=== PATIENT | male | born 1950 | race Caucasian/White ===

== ENCOUNTER 2016-10-22 19:15 | Emergency (ER) | payer MEDICARE, OTHER ==
[2016-10-22] MEDS ORDERED: AMPICILLIN/SULBACTAM 3 GM in SODIUM CHLORIDE 0.9% MINIBAG 100 ML IV STA (19:32)
== END 2016-10-22 20:17 | disposition home or self-care (01) ==
DX: S61.052A Open bite of left thumb without damage to nail, initial encounter (principal); L08.9 Local infection of the skin and subcutaneous tissue, unspecified; W54.0XXA Bitten by dog, initial encounter; Y93.K9 Activity, other involving animal care; Y92.29 Other specified public building as the place of occurrence of the external cause; Y99.0 Civilian activity done for income or pay; R03.0 Elevated blood-pressure reading, without diagnosis of hypertension

== ENCOUNTER 2018-04-04 16:56 | Emergency (ER) | payer MEDICARE, OTHER ==
--- NOTE | 2018-04-04 18:44 | XRAY Report ---
Procedure Date: 04/04/2018 Accession Number: [id number] / [id number] Procedure: XR - Knee 4 View RT CPT Code: FULL RESULT: EXAM: RIGHT KNEE RADIOGRAPHY EXAM DATE: 04/04/2018 05:54 PM. CLINICAL HISTORY: KICKED BY HORSE. COMPARISON: XR KNEE 4 OR MORE VIEWS 12/29/2009. TECHNIQUE: 3 views. FINDINGS: Bones: No fracture or focal bony lesion. Joints: No evidence of dislocation. Soft Tissues: No unexpected soft tissue findings. IMPRESSION: No evidence of fracture or dislocation. [facility]
--- NOTE | 2018-04-04 18:47 | XRAY Report ---
Procedure Date: 04/04/2018 Accession Number: [id number] / [id number] Procedure: XR - Wrist 3 View LT CPT Code: FULL RESULT: EXAM: LEFT WRIST RADIOGRAPHY EXAM DATE: 04/04/2018 06:13 PM. CLINICAL HISTORY: Pain. COMPARISON: 06/20/2014. TECHNIQUE: 3 views. FINDINGS: Bones: There are bony foci at the dorsal margin of the wrist. This could be seen with triquetral fracture. No other fractures are seen. Sensitivity for detection of scaphoid fracture is limited in the absence of ulnar deviated scaphoid view. Joints: No evidence of dislocation. Soft Tissues: There is dorsal soft tissue swelling. IMPRESSION: 1. There are corticated bony foci at the dorsal margin of the carpal row. This could represent remote triquetral fracture. Acute triquetral fracture is less likely given presence of several bones, corticated appearance, and similar findings seen on comparison contralateral lateral view of the wrist. 2. Sensitivity for detection of scaphoid fracture is limited in the absence of ulnar deviated scaphoid view. 3. No evidence of dislocation. [facility]
--- NOTE | 2018-04-04 18:48 | XRAY Report ---
Procedure Date: 04/04/2018 Accession Number: [id number] / [id number] Procedure: XR - Shoulder 3 View RT CPT Code: FULL RESULT: EXAM: RIGHT SHOULDER RADIOGRAPHY EXAM DATE: 04/04/2018 05:54 PM. CLINICAL HISTORY: Kicked by a horse/ pain. COMPARISON: None. TECHNIQUE: 3 views. FINDINGS: Bones: No fracture or focal bony lesion. Joints: No evidence of dislocation. Soft Tissues: No unexpected soft tissue findings. IMPRESSION: No evidence of fracture or dislocation. [facility]
--- NOTE | 2018-04-04 20:15 | ED Physician Documentation ---
PD HPI UPPER EXT INJURY - Stated complaint Stated Complaint: KICKED BY HORSE/R LEG/SHOULDER PX - Chief complaint Chief Complaint: Trauma Ext - History obtained from History obtained from: Patient - History of Present Illness Location: Right, Shoulder, Wrist, Other (right knee) Type of injury: Blunt / blow (he was working near back of horse and it kicked quickly. He was thrown back and landed onto ground. He is not sure which injury was the kick and which landing onto ground. Denies injury to head and neck, nor chest.) Timing - onset: Today Timing - details: Abrupt onset, Still present Worsened by: Moving, Palpating Associated symptoms: Swelling (shoulder and knee areas.). No: Weakness, Numbness Contributing factors: No: Anticoagulated Similar symptoms before: Has not had sx before Review of Systems Skin: denies: Abrasion (s), Laceration (s) Musculoskeletal: denies: Neck pain, Back pain Neurologic: denies: Focal weakness, Numbness, Altered mental status, Headache, Head injury PD PAST MEDICAL HISTORY - Past Medical History Past Medical History: Yes Cardiovascular: None Respiratory: None Neuro: None Endocrine/Autoimmune: None Musculoskeletal: Chronic back pain - Past Surgical History Past Surgical History: Yes Ortho: Arthroscopic surgery - Present Medications Home Medications: Ambulatory Orders Medication Instructions Recorded Confirmed Meloxicam 15 mg PO DAILY 10/25/15 10/22/16 Meloxicam 15 mg PO BID #60 tablet 04/04/18 - Allergies Allergies/Adverse Reactions: Allergies Allergy/AdvReac Type Severity Reaction Status Date / Time No Known Drug Allergies Allergy Verified 04/04/18 17:29 - Social History Does the pt smoke?: No Smoking Status: Never smoker Does the pt drink ETOH?: Yes Does the pt have substance abuse?: No - Immunizations Immunizations are current?: Yes PD ED PE NORMAL - Vitals Vital signs reviewed: Yes - General General: Alert and oriented X 3, No acute distress, Well developed/nourished - HEENT HEENT: Atraumatic - Neck Neck: Supple, no meningeal sign, No adenopathy - Cardiac Cardiac: RRR, No murmur - Respiratory Respiratory: Clear bilaterally, Other (no chestwall tenderness) - Abdomen Abdomen: Soft, Non tender - Back Back: No spinal TTP - Derm Derm: Normal color, Warm and dry - Extremities Extremities: Other (right shoulder tender anteriorly, and at mid clavicle area without deformity. No step at AC area. Right forearm with slight tenderness. Wrist with some dorsal tenderness, slight limit ROM. no noted deformity. Right knee with some tenderness medially without effusion. No gross laxity on stress testing. ) - Neuro Neuro: Alert and oriented X 3, No motor deficit, Normal speech Eye Opening: Spontaneous Motor: Obeys Commands Verbal: Oriented GCS Score: 15 Results - Vitals Vitals: Oxygen O2 Source Room air PD MEDICAL DECISION MAKING - ED course Complexity details: considered differential (he says he was near back legs of horse and it kicked quickly and he flew back onto the ground. He is not sure which injuries were from the kick and which from the fall. ), d/w patient - Sepsis Event Vital Signs: Oxygen O2 Source Room air Departure - Departure Disposition: 01 Home, Self Care Clinical Impression: Struck by horse, initial encounter Fall, accidental Qualifiers: Encounter type: initial encounter Qualified Code(s): W19.XXXA - Unspecified fall, initial encounter Shoulder strain Qualifiers: Encounter type: initial encounter Laterality: right Qualified Code(s): S46.911A - Strain of unspecified muscle, fascia and tendon at shoulder and upper arm level, right arm, initial encounter Left wrist sprain Qualifiers: Encounter type: initial encounter Qualified Code(s): S63.502A - Unspecified sprain of left wrist, initial encounter Strain of right knee Qualifiers: Encounter type: initial encounter Qualified Code(s): S86.911A - Strain of unspecified muscle(s) and tendon(s) at lower leg level, right leg, initial encounter Condition: Stable Record reviewed to determine appropriate education?: Yes Instructions: ED Sprain Knee, ED Sprain Shoulder Follow-Up: Connor Alas MD [Primary Care Provider] - Prescriptions: Meloxicam 15 mg PO BID #60 tablet Comments: No fracture seen on your shoulder knee or wrist. This certainly will be sore for several days to week at least. The shoulder injury could be a few weeks healing if it did have some injury to the ligaments or rotator cuff. Use a sling initially with some gentle range of motion several times a day. Continue your meloxicam twice daily. Add Tylenol if needed for pains. Progress activity with it after several days to week if it is feeling better. Follow-up with your primary care if not improved over the next week. Discharge Date/Time: 04/04/18 20:46
[2018-04-04] MEDS ORDERED: MELOXICAM 7.5 MG TABLET PO STA (20:28)
[2018-04-04] MEDS ORDERED: ACETAMINOPHEN 325 MG TABLET PO STA (20:28)
[2018-04-04 20:48] VITALS: BP 134/80
== END 2018-04-04 20:46 | disposition home or self-care (01) ==
LOC: ED 16:56
DX: S46.911A Strain of unspecified muscle, fascia and tendon at shoulder and upper arm level, right arm, initial encounter (principal); S63.502A Unspecified sprain of left wrist, initial encounter; S86.911A Strain of unspecified muscle(s) and tendon(s) at lower leg level, right leg, initial encounter; W55.12XA Struck by horse, initial encounter
CPT/HCPCS: 73030; 73110; 73564; 99283; A9270

== ENCOUNTER 2018-04-05 20:47 | Emergency (ER) | payer MEDICARE, OTHER ==
[2018-04-05 20:54] VITALS: BP 139/80
--- NOTE | 2018-04-05 21:57 | ED Physician Documentation ---
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 He was x-rayed including x-rays of the right shoulder which was negative. He has persistent popping the distal right clavicle with certain motions of his arm and wonders if his clavicle might be broken.) Review of Systems Constitutional: reports: Reviewed and negative Cardiac: reports: Reviewed and negative Respiratory: reports: Reviewed and negative PD PAST MEDICAL HISTORY - Past Medical History Musculoskeletal: Chronic back pain - Past Surgical History Past Surgical History: Yes Ortho: Arthroscopic surgery - Present Medications Home Medications: Ambulatory Orders Medication Instructions Recorded Confirmed Meloxicam 15 mg PO DAILY 10/25/15 10/22/16 Meloxicam 15 mg PO BID #60 tablet 04/04/18 - Allergies Allergies/Adverse Reactions: Allergies Allergy/AdvReac Type Severity Reaction Status Date / Time No Known Drug Allergies Allergy Verified 04/04/18 17:29 - Social History Does the pt smoke?: No Smoking Status: Never smoker Does the pt drink ETOH?: Yes Does the pt have substance abuse?: No - Immunizations Immunizations are current?: Yes PD ED PE NORMAL - Vitals Vital signs reviewed: Yes - General General: Alert and oriented X 3, No acute distress - Neck Neck: Supple, no meningeal sign, No bony TTP - Extremities Extremities: Other (Right shoulder: The clavicle itself is nontender but he is very tender at the AC joint and he has crepitance with certain motions when he opens up the before meals and he feels like the clavicles popping up, this is all consistent with an AC separation.) - Neuro Neuro: Alert and oriented X 3, Normal speech Results - Vitals Vitals: Vital Signs - 24 hr 04/05/18 20:51 Temperature 36.4 C L Heart Rate 71 Respiratory 16 Rate Blood Pressure 139/80 H O2 Saturation 96 Oxygen O2 Source Room air PD MEDICAL DECISION MAKING - Sepsis Event Vital Signs: Vital Signs - 24 hr 04/05/18 20:51 Temperature 36.4 C L Heart Rate 71 Respiratory 16 Rate Blood Pressure 139/80 H O2 Saturation 96 Oxygen O2 Source Room air Departure - Departure Disposition: 01 Home, Self Care Clinical Impression: Separation of right acromioclavicular joint Qualifiers: Encounter type: initial encounter Qualified Code(s): S43.101A - Unspecified dislocation of right acromioclavicular joint, initial encounter Condition: Good Record reviewed to determine appropriate education?: Yes Instructions: ED Sprain AC Joint Follow-Up: [facility] [Provider Group] - Within 1 week Comments: Your blood pressure was elevated today on check into the emergency department. This does not mean that you have hypertension, it is a common phenomenon to come to the emergency department and have elevated blood pressure. I recommend that you see your primary care physician within the week to have it rechecked when you are feeling better.
== END 2018-04-05 22:00 | disposition home or self-care (01) ==
LOC: ED 20:47
DX: S43.101A Unspecified dislocation of right acromioclavicular joint, initial encounter (principal); W55.12XA Struck by horse, initial encounter; Y99.0 Civilian activity done for income or pay; R03.0 Elevated blood-pressure reading, without diagnosis of hypertension
CPT/HCPCS: 99282; 99283

== ENCOUNTER 2018-06-19 21:45 | Emergency (ER) | payer MEDICARE, OTHER ==
--- NOTE | 2018-06-19 21:50 | ED Physician Documentation ---
PD HPI UPPER EXT INJURY - Stated complaint Stated Complaint: HAND LAC PD PAST MEDICAL HISTORY - Past Medical History Musculoskeletal: Chronic back pain - Past Surgical History Past Surgical History: Yes Ortho: Arthroscopic surgery - Present Medications Home Medications: Ambulatory Orders Medication Instructions Recorded Confirmed Meloxicam 15 mg PO DAILY 10/25/15 10/22/16 Meloxicam 15 mg PO BID #60 tablet 04/04/18 - Allergies Allergies/Adverse Reactions: Allergies Allergy/AdvReac Type Severity Reaction Status Date / Time No Known Drug Allergies Allergy Verified 04/04/18 17:29 - Social History Does the pt smoke?: No Smoking Status: Never smoker Does the pt drink ETOH?: Yes Does the pt have substance abuse?: No - Immunizations Immunizations are current?: Yes Results - Vitals Vitals: Oxygen O2 Source Room air
[2018-06-19] MEDS ORDERED: TETANUS/DIPHTHERIA/PERTUSSIS 0.5 ML SYRINGE IM ONE (22:01)
[2018-06-19] MEDS ORDERED: BUFFERED LIDOCAINE 10 ML SYRINGE SUBQ ONE (22:01)
--- NOTE | 2018-06-19 22:02 | ED Physician Documentation ---
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 Tetanus is approaching 10 years.) Review of Systems Constitutional: reports: Reviewed and negative Cardiac: reports: Reviewed and negative Respiratory: reports: Reviewed and negative PD PAST MEDICAL HISTORY - Past Medical History Musculoskeletal: Chronic back pain - Past Surgical History Past Surgical History: Yes Ortho: Arthroscopic surgery - Present Medications Home Medications: Ambulatory Orders Medication Instructions Recorded Confirmed Meloxicam 15 mg PO DAILY 10/25/15 10/22/16 Meloxicam 15 mg PO BID #60 tablet 04/04/18 - Allergies Allergies/Adverse Reactions: Allergies Allergy/AdvReac Type Severity Reaction Status Date / Time No Known Drug Allergies Allergy Verified 06/19/18 21:57 - Social History Does the pt smoke?: No Smoking Status: Never smoker Does the pt drink ETOH?: Yes Does the pt have substance abuse?: No - Immunizations Immunizations are current?: Yes PD ED PE NORMAL - Vitals Vital signs reviewed: Yes - General General: Alert and oriented X 3, No acute distress - Extremities Extremities: Other (On the right palm, near the first webspace there is an L- shaped laceration totaling 3 cm. It is over the flexor tendon for the second digit but there is no compromise of strength in that digit and no problem with neurovascular status in any of the digits.) - Neuro Neuro: Alert and oriented X 3, Normal speech - Psych Psych: Normal mood, Normal affect Results - Vitals Vitals: Vital Signs - 24 hr 06/19/18 21:47 Temperature 36.5 C Heart Rate 66 Respiratory 17 Rate Blood Pressure 152/74 H O2 Saturation 96 Oxygen O2 Source Room air Procedures - Laceration (location) R hand Length in cm: 3 Wound type: Stellate, Irregular, Superficial, Into subcut fat. No: Into muscle Neurovascular status: Sensory intact, Motor intact Anesthesia: Lidocaine 1%, With bicarb Wound Preparation: Betadine, Irrigated copiously NS Skin layer closure: Nylon, Interrupted, Size #-0 - enter number (4-0), Sutures - enter # (10) Other: Patient tolerated well, No complications, Neurovascular intact, Tetanus booster given Complexity: Simple Departure - Departure Disposition: Home, Self Care Clinical Impression: Laceration of right hand Qualifiers: Encounter type: initial encounter Foreign body presence: without foreign body Qualified Code(s): S61.411A - Laceration without foreign body of right hand, initial encounter Condition: Good Record reviewed to determine appropriate education?: Yes Instructions: ED Laceration Hand Comments: Come back for any signs of infection which would include: Redness, swelling, drainage, increased pain, or fevers. Follow-up with your physician in 14 days for suture removal. Your blood pressure was elevated today on check into the emergency department. This does not mean that you have hypertension, it is a common phenomenon to come to the emergency department and have elevated blood pressure. I recommend that you see your primary care physician within the week to have it rechecked when you are feeling better.
[2018-06-19 22:55] VITALS: BP 160/102
== END 2018-06-19 22:57 | disposition home or self-care (01) ==
LOC: ED 21:45
DX: S61.411A Laceration without foreign body of right hand, initial encounter (principal); W23.0XXA Caught, crushed, jammed, or pinched between moving objects, initial encounter; Y99.0 Civilian activity done for income or pay; R03.0 Elevated blood-pressure reading, without diagnosis of hypertension; Z23 Encounter for immunization
CPT/HCPCS: 12002; 90471; 99282; 99283

== ENCOUNTER 2018-10-26 16:29 | Outpatient (CLI) | payer MEDICARE, OTHER ==
--- NOTE | 2018-10-27 11:09 | MRI Report ---
Reason: KNEE JOINT PAIN > 3 MONTHS,RIGHT Procedure Date: 10/26/2018 Accession Number: [id number] / [id number] Procedure: MRI - Knee RT W/O CPT Code: FULL RESULT: EXAM: RIGHT KNEE MRI WITHOUT CONTRAST EXAM DATE: 10/26/2018 05:22 PM. CLINICAL HISTORY: Right knee pain for 3 months after injury while riding a horse. COMPARISON: KNEE 3 VIEW RT 04/04/2018 5:54 PM XR KNEE 4 OR MORE VIEWS 04/10/2011 8:01 PM. TECHNIQUE: Multiplanar, multisequence T1-weighted and fluid-sensitive sequences of the knee without contrast. Other: None. FINDINGS: Bones and Articular Cartilage: Small marginal osteophytes at the femoral condyles, tibial plateau, and patella. Grade II chondromalacia of the medial femoral condyle and medial tibial plateau. Subcortical cysts at the posterior medial aspect of the medial tibial plateau. Subcortical cysts at the posterior lateral superior aspect of the lateral femoral condyle. Grade 2-3 chondromalacia and subcortical cysts at the median ridge and medial facet of the patella. No patellar subluxation. Grade 2 chondromalacia of the femoral trochlear groove. Medial Meniscus: Free edge fraying and small tear at the inner third of the posterior horn. Lateral Meniscus: The lateral meniscus is intact. Cruciate Ligaments: Small 5 mm partial tear at the proximal end of the anterior cruciate ligament. There is mucoid degeneration and/or sprain of the remaining anterior cruciate ligament. The posterior cruciate ligament is intact. Collateral Ligaments: Chronic appearing grade 2 partial tear at the proximal aspect of the medial collateral ligament complex. Small ganglion within the posterior proximal aspect of the medial (tibial) collateral ligament. The lateral collateral ligament complex structures are intact. Tendons: The quadriceps and patellar and popliteus tendons are intact. There is distal semimembranosus tendinosis. There is a multiloculated and multiseptated, approximately 3.6 x 3 x 0.8 cm ganglion at the distal end of the semimembranosus tendon. Musculature: No edema or fatty atrophy. Other: No effusion. No popliteal cyst. No loose bodies. The medial and lateral retinacula are intact. There a magnetic susceptibility artifacts within the subcutaneous tissues at the anteromedial aspect of the visualized distal thigh. IMPRESSION: 1. 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 No acute fracture. 2. Free edge fraying and small horizontal tear at the inner third of the posterior horn medial meniscus. 3. Small 5 mm partial tear at the proximal end of the anterior cruciate ligament. Mucoid degeneration and/or sprain of the remaining anterior cruciate ligament. 4. Chronic appearing grade 2 partial tear at the proximal aspect of the medial collateral ligament complex. 5. Distal semimembranosus tendinosis. There is a multiloculated and multiseptated ganglion at the distal end of the semimembranosus tendon. 6. Magnetic susceptibility artifacts within the subcutaneous fat at the anterior medial aspect of the visualized distal thigh which may be due to small metallic foreign bodies or may be postoperative in etiology. [facility] MUSCULOSKELETAL RADIOLOGY SECTION
== END 2018-10-26 16:30 | disposition home or self-care (01) ==
LOC: DI 16:29
PROVIDERS: ATTEND Orthopaedic Surgery Sports Medicine
DX: M17.11 Unilateral primary osteoarthritis, right knee (principal); S83.241A Other tear of medial meniscus, current injury, right knee, initial encounter; S83.511A Sprain of anterior cruciate ligament of right knee, initial encounter; S83.411A Sprain of medial collateral ligament of right knee, initial encounter; M67.863 Other specified disorders of tendon, right knee; M67.461 Ganglion, right knee

== ENCOUNTER 2019-07-21 06:58 | Outpatient (CLI) | payer MEDICARE, OTHER ==
--- NOTE | 2019-07-22 04:54 | XRAY Report ---
Reason: Pain and edema 2nd MP joint since 02/26/19 Procedure Date: 07/21/2019 Accession Number: [id number] / [id number] Procedure: XR - Foot 3 View RT CPT Code: Final Report FULL RESULT: EXAM: RIGHT FOOT RADIOGRAPHY EXAM DATE: 07/21/2019 07:13 AM. CLINICAL HISTORY: Pain and edema 2nd MP joint since 02/26/19. COMPARISON: None. TECHNIQUE: 3 views. FINDINGS: Bones: Normal. No fractures or bone lesions. A calcaneal enthesophyte is seen. Joints: Mild osteoarthritis is seen at the first metatarsophalangeal joint and first interphalangeal joint. Soft Tissues: Soft tissue edema seen along the plantar surface of the forefoot. IMPRESSION: No acute osseous abnormality. Soft tissue swelling. [facility]
== END 2019-07-21 06:59 | disposition home or self-care (01) ==
LOC: DI 06:58
PROVIDERS: ATTEND Podiatrist
DX: M79.671 Pain in right foot (principal); R60.0 Localized edema

== ENCOUNTER 2019-08-13 18:01 | Outpatient (CLI) | payer MEDICARE, OTHER ==
--- NOTE | 2019-08-14 13:46 | MRI Report ---
Reason: PAIN AND EDEMA 2ND Procedure Date: 08/13/2019 Accession Number: [id number] / [id number] Procedure: MRI - Foot RT W/O CPT Code: Final Report FULL RESULT: EXAM: RIGHT MIDFOOT MRI WITHOUT CONTRAST EXAM DATE: 08/13/2019 07:27 PM. CLINICAL HISTORY: Pain and edema. COMPARISON: FOOT 3 VIEW RT 07/21/2019 7:09 AM. TECHNIQUE: Multiplanar, multisequence T1-weighted and fluid-sensitive sequences of the midfoot without contrast. Other: None. FINDINGS: Bones: Bipartite medial cuneiform with severe arthrosis articulation plantar and dorsal segments (image 34 series 701 and image 8 series 901). Severe arthrosis is seen at the first cuneiform second cuneiform articulation. Moderate arthrosis is noted at the dorsal aspect first tarsometatarsal articulation with severe chondromalacia and subcortical marrow edema or cystic changes. Focal subcortical marrow edema distal third cuneiform with chondromalacia at the third metatarsal third cuneiform articulation. Marrow edema is noted at the proximal phalanx second digit with periarticular soft tissue swelling. Articular Cartilage and joints: Severe chondromalacia first metatarsophalangeal joint with mild subluxation first metatarsophalangeal joint and moderate osteoarthritis first metatarsophalangeal joint. Small second metatarsophalangeal joint fluid. Ligaments: Intact plantar aspect first cuneiform second metatarsal base ligament tip. Negative for disruption membranous ligament first cuneiform second metatarsal base. Possible partial tear first cuneiform second metatarsal dorsal Lisfranc ligament. Negative for second tarsometatarsal subluxation. Tendons: The flexor and extensor tendons are unremarkable. Musculature: No edema or fatty atrophy. Other: Negative for discrete mass plantar forefoot between the first and second metatarsal heads corresponding.The visualized portion of the tarsal tunnel is unremarkable.No intermetatarsal bursitis.Negative for discrete soft tissue mass plantar aspect of first and second metatarsal head interspace corresponding to the skin marker. Negative for neuroma. Negative for intermetatarsal bursitis. IMPRESSION: 1. Periarticular soft tissue edema and small increased second metatarsophalangeal joint fluid. 2. Negative for marginal erosion or synovitis second metatarsophalangeal joint to suggest inflammatory arthritis. 3. There is no discrete soft tissue mass or neuroma plantar aspect forefoot between the first and second metatarsal heads at the level of the skin marker indicating the site of pain. 4. Bipartite first cuneiform with severe arthrosis or osteochondrosis between the dorsal and plantar segments. 5. Severe arthrosis is noted at the first cuneiform, second cuneiform articulation with probable partial tear first and second intermetatarsal ligaments. 6. Moderate arthrosis dorsal aspect first tarsometatarsal articulation. 7. Intact plantar aspect and membranous ligament and probable partial tear dorsal band first cuneiform second metatarsal base ligament or Lisfranc ligament without subluxation. 8. Moderate osteoarthritis and severe chondromalacia first metatarsophalangeal joint. [facility]
== END 2019-08-13 18:02 | disposition home or self-care (01) ==
LOC: DI 18:01
PROVIDERS: ATTEND Podiatrist
DX: M19.071 Primary osteoarthritis, right ankle and foot (principal); M25.474 Effusion, right foot; M94.271 Chondromalacia, right ankle and joints of right foot

== ENCOUNTER 2020-11-29 12:51 | Outpatient (CLI) | payer MEDICARE, OTHER ==
[2020-11-29 13:29] LABS: BASOPHILS % (AUTO) 0.5 %; EOSINOPHILS # (AUTO) 0.1 10^3/uL (0.0-0.7); HCT - HEMATOCRIT 44.2 % (42.0-52.0); LYMPHOCYTES # (AUTO) 1.4 10^3/uL (1.5-3.5); LYMPHOCYTES % (AUTO) 32.3 %; MEAN CORPUSCULAR HEMOGLOBIN 31.3 pg (27.0-31.0); MEAN CORPUSCULAR HGB CONC 33.9 g/dL (32.0-36.0); MEAN CORPUSCULAR VOLUME 92.3 fL (80.0-94.0); MEAN PLATELET VOLUME 9.4 fL (7.4-11.4); MONOCYTES # (AUTO) 0.3 10^3/uL (0.0-1.0); MONOCYTES % (AUTO) 7.2 %; NEUTROPHILS # (AUTO) 2.5 10^3/uL (1.5-6.6); NEUTROPHILS % (AUTO) 56.8 %; PLT - PLATELET COUNT 187 10^3/uL (130-450); RED BLOOD COUNT 4.79 10^6/uL (4.70-6.10); RED CELL DISTRIBUTION WIDTH 12.1 % (12.0-15.0); WHITE BLOOD COUNT 4.3 x10^3/uL (4.8-10.8)
[2020-11-29 13:49] LABS: ALBUMIN 4.6 g/dL (3.2-5.5); ALBUMIN/GLOBULIN RATIO 1.4 (1.0-2.2); ALKALINE PHOSPHATASE 67 IU/L (42-121); ALT ALANINE AMINOTRANSFERASE 33 IU/L (10-60); AST ASPARTATE AMINOTRANSFERASE 33 IU/L (10-42); BILIRUBIN,TOTAL 1.6 mg/dL (0.2-1.0); BUN - BLOOD UREA NITROGEN 24 mg/dL (6-20); CALCIUM 9.5 mg/dL (8.5-10.3); CARBON DIOXIDE - CO2 25 mmol/L (21-32); CHLORIDE 102 mmol/L (101-111); CHOL/HDL RATIO 4.3 (<5.0); CHOLESTEROL 193 mg/dL; CREATININE 1.1 mg/dL (0.6-1.2); GFR - MDRD 66 (>89); GLUCOSE 83 mg/dL (70-100); HDL CHOLESTEROL 45 mg/dL; LDL CHOLESTEROL,CALCULATED 139 mg/dL; LDL/HDL RATIO 3.1 (<3.6); POTASSIUM 4.3 mmol/L (3.5-5.0); SODIUM 141 mmol/L (135-145); TOTAL PROTEIN 7.8 g/dL (6.7-8.2); TRIGLYCERIDES 47 mg/dL; VLDL CHOLESTEROL 9 mg/dL
[2020-11-29 14:00] LABS: THYROID STIMULATING HORMONE 3.41 uIU/mL (0.34-5.60)
== END 2020-11-29 12:52 | disposition home or self-care (01) ==
LOC: LAB 12:51
PROVIDERS: ATTEND Family Medicine
DX: N52.9 Male erectile dysfunction, unspecified (principal); M19.90 Unspecified osteoarthritis, unspecified site; E66.3 Overweight; M54.5 Low back pain; G89.29 Other chronic pain; R53.83 Other fatigue
CPT/HCPCS: 36415; 80053; 80061; 81599; 83721; 84153; 84443; 85025; 86382

== ENCOUNTER 2021-04-19 18:55 | Outpatient (CLI) | payer MEDICARE, OTHER ==
--- NOTE | 2021-04-19 19:47 | XRAY Report ---
PROCEDURE: Knee 4 View RT INDICATIONS: KNEE EFFUSION, RIGHT TECHNIQUE: 3 views of the right knee(s) were acquired. COMPARISON: None. FINDINGS: Bones: No fractures or dislocations. No suspicious bony lesions. Mild tricompartmental periarticul ar osteophyte formation. Soft tissues: No joint effusion. No suspicious soft tissue calcifications. IMPRESSION: Osteoarthritis. No acute fracture. No osseous lesion. If symptoms and/or clinical suspic ion for pathology continue, further assessment with repeat plain films, or advanced imaging (e.g., CT , MRI, or bone scan) is recommended for further assessment. Reviewed by: Klaudia Zarate MD on 04/19/2021 7:46 PM PDT Approved by: Klaudia Zarate MD on 04/19/2021 7:46 PM PDT Station ID: [id number]
== END 2021-04-19 18:56 | disposition home or self-care (01) ==
LOC: DI 18:55
PROVIDERS: ATTEND Family Medicine
DX: M17.11 Unilateral primary osteoarthritis, right knee (principal)

== ENCOUNTER 2022-02-23 18:19 | Emergency (ER) | payer MEDICARE, OTHER ==
[2022-02-23 18:58] LABS: BASOPHILS % (AUTO) 0.8 %; EOSINOPHILS # (AUTO) 0.4 10^3/uL (0.0-0.7); EOSINOPHILS % (AUTO) 8.4 %; HCT - HEMATOCRIT 43.7 % (42.0-52.0); HGB - HEMOGLOBIN 14.6 g/dL (14.0-18.0); LYMPHOCYTES % (AUTO) 38.5 %; MEAN CORPUSCULAR HEMOGLOBIN 30.9 pg (27.0-31.0); MEAN CORPUSCULAR HGB CONC 33.4 g/dL (32.0-36.0); MEAN CORPUSCULAR VOLUME 92.4 fL (80.0-94.0); MEAN PLATELET VOLUME 9.9 fL (7.4-11.4); MONOCYTES # (AUTO) 0.5 10^3/uL (0.0-1.0); MONOCYTES % (AUTO) 10.3 %; NEUTROPHILS # (AUTO) 2.2 10^3/uL (1.5-6.6); NEUTROPHILS % (AUTO) 41.8 %; PLT - PLATELET COUNT 185 10^3/uL (130-450); RED BLOOD COUNT 4.73 10^6/uL (4.70-6.10); RED CELL DISTRIBUTION WIDTH 12.4 % (12.0-15.0); WHITE BLOOD COUNT 5.1 x10^3/uL (4.8-10.8)
--- NOTE | 2022-02-23 19:10 | XRAY Report ---
PROCEDURE: Chest 1 View X-Ray INDICATIONS: Chest Pain TECHNIQUE: One view of the chest was acquired. COMPARISON: None FINDINGS: Surgical changes and devices: None. Lungs and pleura: No pleural effusions or pneumothorax. Lungs are clear. Mediastinum: Mediastinal contours appear normal. Heart size is normal. Bones and chest wall: No suspicious bony lesions. Overlying soft tissues appear unremarkable. IMPRESSION: No acute cardiopulmonary disease process. Reviewed by: Blanca Ricks MD, PhD on 02/23/2022 7:09 PM PDT Approved by: Blanca Ricks MD, PhD on 02/23/2022 7:09 PM PDT Station ID: [id number]
[2022-02-23 19:12] LABS: ALBUMIN 4.3 g/dL (3.2-5.5); ALBUMIN/GLOBULIN RATIO 1.3 (1.0-2.2); BILIRUBIN,TOTAL 1.2 mg/dL (0.2-1.0); CALCIUM 8.9 mg/dL (8.5-10.3); CREATININE 1.2 mg/dL (0.6-1.2); POTASSIUM 4.1 mmol/L (3.5-5.0); TOTAL PROTEIN 7.6 g/dL (6.7-8.2)
--- NOTE | 2022-02-23 19:12 | ED Physician Documentation ---
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 He chronically has indigestion and developed his usual indigestion pressure pain but for half the day 2 days ago it radiated in the left arm and shoulder and this was atypical. He did not feel overtly fatigued but does note he was tired after, but did not sleep the 2 nights prior because of veterinary emergencies. He was not short of breath, nauseous, sweaty, or dizzy. He called his doctor's office to make an appointment but was referred here. No pain in the last 36 to 48 hours or so. Review of Systems Constitutional: denies: Fever, Chills, Sweats Cardiac: denies: Palpitations, Pedal edema, Calf pain Respiratory: denies: Dyspnea, Cough, Hemoptysis, Wheezing PD PAST MEDICAL HISTORY - Past Medical History Cardiovascular: None Respiratory: None Neuro: None Endocrine/Autoimmune: None GI: None : None HEENT: None Psych: None Musculoskeletal: Chronic back pain Derm: None - Past Surgical History Past Surgical History: Yes Ortho: Arthroscopic surgery - Allergies Allergies/Adverse Reactions: Allergies Allergy/AdvReac Type Severity Reaction Status Date / Time No Known Drug Allergies Allergy Verified 02/23/22 18:25 - Social History Does the pt smoke?: No Smoking Status: Never smoker Does the pt drink ETOH?: Yes Does the pt have substance abuse?: No - Immunizations Immunizations are current?: Yes - POLST Patient has POLST: No PD ED PE NORMAL - Vitals Vital signs reviewed: Yes - General General: Alert and oriented X 3, No acute distress - HEENT HEENT: PERRL, EOMI - Neck Neck: Supple, no meningeal sign, No bruit - Cardiac Cardiac: RRR, No murmur - Respiratory Respiratory: No respiratory distress, Clear bilaterally - Abdomen Abdomen: Non tender - Extremities Extremities: No edema, No calf tenderness / cord - Neuro Neuro: Alert and oriented X 3, Normal speech Results - Vitals Vitals: Vital Signs - 24 hr 02/23/22 02/23/22 18:27 19:40 Temperature 36.3 C L 36.5 C Heart Rate 58 L 62 Respiratory 16 16 Rate Blood Pressure 173/96 H 155/88 H O2 Saturation 99 99 Oxygen O2 Source Room air - EKG (time done) 1833 Rate: Rate (enter#) (54) Rhythm: NSR [place]: Normal Intervals: Normal [place] QRS: Normal Ischemia: Non specific changes. No: ST elevation c/w ischemia, ST depression - Labs Labs: Laboratory Tests 02/23/22 02/23/22 02/23/22 18:52 18:52 18:52 WBC 5.1 RBC 4.73 Hgb 14.6 Hct 43.7 MCV 92.4 MCH 30.9 MCHC 33.4 RDW 12.4 Plt Count 185 MPV 9.9 Neut # (Auto) 2.2 Lymph # (Auto) 2.0 [place] # (Auto) 0.5 Eos # (Auto) 0.4 Baso # (Auto) 0.0 Absolute Nucleated RBC 0.00 Nucleated RBC % 0.0 Sodium 136 Potassium 4.1 Chloride 103 Carbon Dioxide 26 Anion Gap 7.0 BUN 24 H Creatinine 1.2 Estimated GFR (MDRD) 60 L Glucose 86 Calcium 8.9 Total Bilirubin 1.2 H AST 30 ALT 30 Alkaline Phosphatase 65 Troponin I High Sens 3.7 Total Protein 7.6 Albumin 4.3 Globulin 3.3 Albumin/Globulin Ratio 1.3 Lipase 37 PD MEDICAL DECISION MAKING - ED course ED course: 71yo male had pain different from his usual indigestion most of the day 2 days ago, but no pain since then. Neg EKG/biomarkers. Understands need to RTED if pain recurs, o/w f/u PCP for consideration for stress. Departure - Departure Disposition: 01 Home, Self Care Clinical Impression: Chest pain Condition: Good Record reviewed to determine appropriate education?: Yes Instructions: ED Chest Pain Atypical Unkn Cause Comments: Work-up today was normal with unremarkable labs including high-sensitivity troponin EKG and chest x-ray. Cause of your pain is unknown, could be indigestion but do follow-up with your physician and consider stress testing. If pain recurs please return immediately for reevaluation. Discharge Date/Time: 02/23/22 19:40
[2022-02-23 19:41] VITALS: BP 155/88
== END 2022-02-23 19:40 | disposition home or self-care (01) ==
LOC: ED 18:19
DX: R07.9 Chest pain, unspecified (principal)
CPT/HCPCS: 36415; 80053; 83690; 84484; 85025; 93005; 99282; 99284

== ENCOUNTER 2022-05-02 13:01 | Emergency (ER) | payer MEDICARE, OTHER ==
--- NOTE | 2022-05-02 14:39 | XRAY Report ---
PROCEDURE: Knee 4 View LT INDICATIONS: knee pain TECHNIQUE: 4 views of the left knee(s) were acquired. COMPARISON: None. FINDINGS: Bones: No fractures or dislocations. No suspicious bony lesions. Soft tissues: No joint effusion. No suspicious soft tissue calcifications. IMPRESSION: No visualized acute fracture or dislocation. However, occult injury cannot be excluded. R ecommend short interval imaging follow-up in 7-10 days as clinically indicated for additional evaluat ion. Reviewed by: Genoveva Arora MD on 05/02/2022 2:38 PM PDT Approved by: Genoveva Arora MD on 05/02/2022 2:38 PM PDT Station ID: [id number]
[2022-05-02] MEDS ORDERED: DEXAMETHASONE 10 MG/ML VIAL IM STA (14:58)
--- NOTE | 2022-05-02 15:01 | ED Physician Documentation ---
History of Present Illness - Stated complaint Stated Complaint: L LEG PX - Chief complaint Chief Complaint: Ext Problem - History obtained from History obtained from: Patient - Additonal information Additional information: The patient comes to the emergency department chief complaint of posterior left knee pain that has been going on for the Past several days, steadily worsening. He states he has been doing a lot of climbing up and down stairs with things that he is moving into a trailer. He is supposed to drive to [place] in a week and states that with all the moving, you have been using his knee a lot. He has a history of arthritis, he says, and has had to have steroid injections in his knees before. He denies any direct trauma. He states that lately, when he sits, especially with driving, and notes pressure on his posterior thigh for any length of time, he begins to get a deep ache that goes down the back of his knee. He states he also notices the same kind of pain extending along his lateral anterior tibial area. He states he has a mild amount of edema in both legs which is at baseline and fairly equal. He has no history of DVT. He has not undertaken any longer trips lately. No surgeries or other cause for immobilization. He has actually been quite active. Review of Systems Ten Systems: 10 systems reviewed and negative Constitutional: reports: Reviewed and negative Eyes: reports: Reviewed and negative Ears: reports: Reviewed and negative Nose: reports: Reviewed and negative Throat: reports: Reviewed and negative Cardiac: reports: Reviewed and negative Respiratory: reports: Reviewed and negative GI: reports: Reviewed and negative : reports: Reviewed and negative Skin: reports: Reviewed and negative Musculoskeletal: reports: Extremity pain, Joint pain Neurologic: reports: Reviewed and negative Psychiatric: reports: Reviewed and negative Endocrine: reports: Reviewed and negative Immunocompromised: reports: Reviewed and negative PD PAST MEDICAL HISTORY - Past Medical History Cardiovascular: None Respiratory: None Neuro: None Endocrine/Autoimmune: None GI: None : None HEENT: None Psych: None Musculoskeletal: Chronic back pain Derm: None - Past Surgical History Past Surgical History: Yes Ortho: Arthroscopic surgery - Present Medications Home Medications: Ambulatory Orders Medication Instructions Recorded Confirmed Meloxicam [Mobic] 15 mg PO DAILY 05/02/22 05/02/22 - Allergies Allergies/Adverse Reactions: Allergies Allergy/AdvReac Type Severity Reaction Status Date / Time No Known Drug Allergies Allergy Verified 05/02/22 13:09 - Social History Does the pt smoke?: No Smoking Status: Never smoker Does the pt drink ETOH?: Yes Does the pt have substance abuse?: No - Immunizations Immunizations are current?: Yes - POLST Patient has POLST: No PD ED PE NORMAL - Vitals Vital signs reviewed: Yes - General General: Alert and oriented X 3, No acute distress, Well developed/nourished - HEENT HEENT: Atraumatic, PERRL, EOMI, Moist mucous membranes - Neck Neck: Supple, no meningeal sign - Respiratory Respiratory: No respiratory distress - Derm Derm: Normal color, Warm and dry, No rash - Extremities Extremities: No deformity, Other (Trace pitting edema left lower leg. Mild tenderness palpation popliteal area without mass. Full range of motion of left knee noted. Minimal patellar mobility. No deformity or crepitus.) - Neuro Neuro: Alert and oriented X 3 - Psych Psych: Normal mood, Normal affect Results - Vitals Vitals: Oxygen O2 Source Room air - Rads (name of study) L knee XR Radiology: Final report received, EMP read indepedently, See rad report (nad) US LLE Radiology: Final report received, See rad report (No DVT) PD MEDICAL DECISION MAKING - ED course Complexity details: reviewed results, re-evaluated patient, considered differential, d/w patient ED course: The patient was treated symptomatically with Decadron and worked up with left knee x-ray and duplex ultrasound of left lower extremity, which were unremarkable. Departure - Departure Disposition: 01 Home, Self Care Clinical Impression: Hamstring strain Qualifiers: Encounter type: initial encounter Laterality: left Qualified Code(s): S76.312A - Strain of muscle, fascia and tendon of the posterior muscle group at thigh level, left thigh, initial encounter Condition: Stable Instructions: ED Strain Muscle Ext Comments: Your x-ray shows very slight arthritis but otherwise unremarkable findings, and your ultrasound shows a little inflammation in the back your knee but otherwise normal. There is no evidence of a clot or other concerning finding. You have been offered a steroid prescription in the emergency department, which would probably be the most helpful adjunct of medicine to augment what you are already taking. However, at this point in time the have preferred not to go this route. You may follow-up with your primary care physician if the symptoms do not improve over the next couple of weeks. Discharge Date/Time: 05/02/22 16:19
[2022-05-02 16:19] VITALS: BP 161/73
--- NOTE | 2022-05-02 16:48 | Ultrasound Report ---
PROCEDURE: Duplex Ext Veins Left INDICATIONS: pain/swelling TECHNIQUE: Real-time imaging, as well as color and pulse Doppler interrogation, were performed of the lower extr emity deep veins from the inguinal ligament to the popliteal fossa. COMPARISON: None. FINDINGS: The deep veins are normally compressible, and free of intraluminal thrombus. Color and pu lse Doppler demonstrate normal phasic intraluminal flow. There is normal augmentation response to di stal compression maneuver. Fluid collection measuring 2.3 x 0.7 x 1.9 cm node along the anterior knee subcutaneous fat. IMPRESSION: No deep venous or process. Anterior subcutaneous knee fluid which may represent hematoma or potentially fluid from ruptured cyst versus degenerative change. However, no posterior fluid is identified. Reviewed by: Genoveva Arora MD on 05/02/2022 4:46 PM PDT Approved by: Genoveva Arora MD on 05/02/2022 4:46 PM PDT Station ID: [id number]
== END 2022-05-02 16:19 | disposition home or self-care (01) ==
LOC: ED 13:01
DX: S76.312A Strain of muscle, fascia and tendon of the posterior muscle group at thigh level, left thigh, initial encounter (principal); X50.3XXA Overexertion from repetitive movements, initial encounter; Y93.89 Activity, other specified
CPT/HCPCS: 96372; 99282; 99284